=== PATIENT | male | born 1990 | race Caucasian/White ===

== ENCOUNTER 2021-03-01 09:04 | Emergency (ER) | payer OTHER ==
--- NOTE | 2021-03-01 10:39 | ED Physician Documentation ---
PD HPI URI - Stated complaint Stated Complaint: FATIGUE,BODY ACHES AND CHILLS - Chief complaint Chief Complaint: Heent - History obtained from History obtained from: Patient - History of Present Illness Timing - onset: How many days ago (2-3) Timing duration: Days (2-3) Associated symptoms: Chills, Nasal congestion, Sore throat, Dry cough (mild). No: NVD Contributing factors: No: Sick contact, Unimmunized Similar symptoms before: Has not had sx before Recently seen: Not recently seen Review of Systems Constitutional: reports: Chills, Myalgias Nose: reports: Congestion Throat: reports: Sore throat Cardiac: denies: Chest pain / pressure Respiratory: reports: Cough GI: denies: Abdominal Pain, Nausea, Vomiting, Diarrhea Skin: denies: Rash Neurologic: denies: Altered mental status, Headache PD PAST MEDICAL HISTORY - Past Medical History Cardiovascular: None Respiratory: None Neuro: None Endocrine/Autoimmune: None - Present Medications Home Medications: Ambulatory Orders Medication Instructions Recorded Confirmed Emtricitabine/Tenofovir (Tdf) 1 each PO DAILY 03/01/21 03/01/21 [Emtricitabine-Tenofv 200-300Mg] - Allergies Allergies/Adverse Reactions: Allergies Allergy/AdvReac Type Severity Reaction Status Date / Time No Known Drug Allergies Allergy Verified 03/01/21 09:31 PD ED PE NORMAL - Vitals Vital signs reviewed: Yes - General General: Alert and oriented X 3, No acute distress, Well developed/nourished - HEENT HEENT: Ears normal, Moist mucous membranes, Pharynx benign - Neck Neck: Supple, no meningeal sign, No adenopathy - Cardiac Cardiac: RRR, No murmur - Respiratory Respiratory: Clear bilaterally - Abdomen Abdomen: Soft, Non tender - Derm Derm: Normal color, Warm and dry, No rash - Neuro Neuro: Alert and oriented X 3, No motor deficit, Normal speech Results - Vitals Vitals: Oxygen O2 Source Room air PD MEDICAL DECISION MAKING - ED course Complexity details: considered differential, d/w patient Departure - Departure Disposition: 01 Home, Self Care Clinical Impression: Upper respiratory infection Qualifiers: URI type: unspecified URI Qualified Code(s): J06.9 - Acute upper respiratory infection, unspecified Condition: Stable Record reviewed to determine appropriate education?: Yes Instructions: ED Upper Resp Infec No Abx Tx Follow-Up: [facility] [place] [Provider Group] Comments: Stay well-hydrated. Tylenol ibuprofen if needed for pains or fevers. [id number] cough medicines are okay to use for symptoms. Off work today and tomorrow pending improvement and Covid results. You have a Covid test pending. You need to self quarantine until the result is done and negative. Do not leave your house. Do not get near anybody. The results should be done in 48 to 72 hours, but sometimes longer. We will call wi th a positive result, the fastest way to get a negative result for confirmation though is to go to the hospital website at [email or web address], click on the my [email or web address] tab and sign up for the patient portal. If any friends or family get sick and would like to have a Covid test done, but do not have signs or symptoms that would necessitate being hospitalized, we encourage testing throughone of the local pharmacies or the Health Department. Call them to schedule an appointment. Forms: Activity restrictions Discharge Date/Time: 03/01/21 10:43
[2021-03-01 10:44] VITALS: BP 138/88
== END 2021-03-01 10:43 | disposition home or self-care (01) ==
LOC: ED 09:04
DX: U07.1 COVID-19 (principal); J06.9 Acute upper respiratory infection, unspecified
CPT/HCPCS: 99282; 99283

== ENCOUNTER 2023-03-12 13:19 | Emergency (ER) | payer OTHER ==
[2023-03-12 13:32] VITALS: BP 160/90; O2SAT 99
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
[2023-03-12] MEDS ORDERED: ACETAMINOPHEN 325 MG TABLET PO STA (15:49)
[2023-03-12] MEDS ORDERED: IBUPROFEN 600 MG TABLET PO STA (15:49)
== END 2023-03-12 15:58 | disposition home or self-care (01) ==
LOC: ED 13:19
DX: S19.9XXA Unspecified injury of neck, initial encounter (principal); S39.92XA Unspecified injury of lower back, initial encounter; V49.49XA Driver injured in collision with other motor vehicles in traffic accident, initial encounter
CPT/HCPCS: 99282; 99283; A9270